=== PATIENT | male | born 1940 | race Caucasian/White ===

== ENCOUNTER 2018-04-25 09:53 | Inpatient (IN) | payer MEDICARE ==
[~2018-04-25] VITALS: Ht 172.7 cm; Wt 74.0 kg
[2018-04-25] VITALS (11 sets, daily range): BP systolic 72–148; BP diastolic 43–82; PULSE 74–92; RESP 16–20; TEMP 98–98.5; O2SAT 95–100
--- NOTE | 2018-04-25 10:20 | PD ---
HPI Chief Complaint: Syncope/Near-Syncope Time Seen by Provider: 10:15 Travel History International Travel<30 days: No Contact w/Intl Traveler<30days: No Traveled to known affect area: No History of Present Illness HPI 78yo M with PMH of afib not on any anticoagulation was brought in by [facility] for evaluation of syncope. Pt was just sitting down eating with and grandson when he passed out for less than a minute. Pt is a poor historian and denies any complaints. Denies any fever, chest pain, sob, n/v, abdominal pain, focal weakness or numbness. Pt does drink daily and was having a bloody nile today. Denies any trauma but does have multiple ecchymoses in bilateral upper extremities and said he bruises easily. PFSH Past Medical History Cardiovascular Problems: Yes (HTN) Diminished Hearing: No Social History Alcohol Use: Yes (10 DRINKS A DAY (WHISKY )) Tobacco Use: No Allergies-Medications (Allergen,Severity, Reaction): Coded Allergies: No Known Allergies (Unverified , 04/25/18) Reported Meds & Prescriptions Reported Meds & Active Scripts Active Reported Furosemide 20 Mg Tab Unknown Dose PO DAILY Cyanocobalamin Inj (Cyanocobalamin) 1,000 Mcg/Ml Inj 1,000 Mcg IM Q30D Xifaxan (Rifaximin) 550 Mg Tab 550 Mg PO Q12HR Lipitor (Atorvastatin Calcium) 40 Mg Tab 40 Mg PO DAILY Levemir Inj (Insulin Detemir) 1,000 unit/ 10 ML Vial 10 Units SQ HS PRN Do not mix with any other Insulin. Folic Acid 1 Mg Tablet 1 Tab PO DAILY Ezetimibe 10 Mg Tab 10 Mg PO DAILY Novolog Flexpen Inj (Insulin Aspart) 300 Unit/3 Ml Pen Unknown Dose SQ TIDAC Novolog Flexpen Inj (Insulin Aspart) 300 Unit/3 Ml Pen 4 Units SQ TIDAC Vitamin B-1 (Thiamine Mononitrate) 100 Mg Tab 100 Mg PO DAILY Fish Oil + D3 (Fish Oil-Cholecalciferol) 1,200-1,000 Mg-Unit Cap 1 Cap PO DAILY Cialis (Tadalafil) 2.5 Mg Tab 2.5 Mg PO DAILY Do not exceed 1 dose/day. Aspirin 81 Mg Chew 81 Mg CHEW DAILY Allopurinol 100 Mg Tab 100 Mg PO DAILY Pantoprazole (Pantoprazole Sodium) 40 Mg Tab 40 Mg PO BID Magox 400 (Magnesium Oxide) 400 Mg Tablet 200 Mg PO BID Review of Systems Except as stated in HPI: all other systems reviewed are Neg Physical Exam Narrative GENERAL: 78yo M in mild distress. SKIN: Focused skin assessment warm/dry. HEAD: Atraumatic. Normocephalic. EYES: Pupils equal and round at 3mm bilaterally. EOMI. ENT: No nasal bleeding or discharge. Mucous membranes pink and moist. NECK: Trachea midline. No JVD. CARDIOVASCULAR: Regular rate and rhythm. No murmur appreciated. RESPIRATORY: No accessory muscle use. Clear to auscultation. Breath sounds equal bilaterally. GASTROINTESTINAL: Abdomen soft, non-tender, nondistended. MUSCULOSKELETAL: No obvious deformities. No clubbing. No cyanosis. +Bilateral lower extremity edema. NEUROLOGICAL: Awake and alert. No obvious cranial nerve deficits. Motor grossly within normal limits. Normal speech. PSYCHIATRIC: Appropriate mood and affect; insight and judgment normal. Data Data Last Documented VS Vital Signs Date Time Temp Pulse Resp B/P (MAP) Pulse Ox O2 Delivery O2 Flow Rate FiO2 04/25/18 14:00 89 20 133/62 (85) 100 Room Air 04/25/18 10:01 98.0 Orders Orders Electrocardiogram (04/25/18 10:15) Basic Metabolic Panel (Bmp) (04/25/18 10:15) Complete Blood Count With Diff (04/25/18 10:15) Magnesium (Mg) (04/25/18 10:15) Troponin I (04/25/18 10:15) Act Partial Throm Time (Ptt) (04/25/18 10:15) Prothrombin Time / Inr (Pt) (04/25/18 10:15) Orthostatic Vital Signs (04/25/18 10:15) Alcohol (Ethanol) (04/25/18 10:15) Sodium Chlor 0.9% 1000 Ml Inj (Ns 1000 M (04/25/18 11:30) Thiamine Inj (Thiamine Inj) (04/25/18 11:30) Potassium Chloride (Kcl) (04/25/18 11:30) Magnesium Sulfate 1 Gm Premix (Magnesium (04/25/18 11:30) Ct Brain W/O Iv Contrast(Rout) (04/25/18 ) Alcohol Withdrawal Asmt-Ciwa ONCE (04/25/18 12:29) Flumazenil Inj (Romazicon Inj) (04/25/18 12:30) Lorazepam (Ativan) (04/25/18 12:30) Lorazepam Inj (Ativan Inj) (04/25/18 12:30) Lorazepam (Ativan) (04/25/18 12:30) Lorazepam Inj (Ativan Inj) (04/25/18 12:30) Lorazepam Inj (Ativan Inj) (04/25/18 12:30) Lorazepam Inj (Ativan Inj) (04/25/18 12:30) 1/2 Ns + Kcl 20 Meq Inj (1/2 Ns + Kcl 20 (04/25/18 15:00) Magnesium Oxide (Mag-Ox) (04/25/18 15:00) Potassium Phosphate (K-Phos) (04/25/18 15:00) Complete Blood Count With Diff (04/26/18 06:00) Allopurinol (Zyloprim) (04/26/18 09:00) Aspirin Chew (Aspirin Chew) (04/26/18 09:00) Atorvastatin (Lipitor) (04/26/18 09:00) Cyanocobalamin Inj (Vitamin B12 Inj) (04/25/18 15:00) Ezetimibe (Zetia) (04/26/18 09:00) Folic Acid (Folate) (04/26/18 09:00) Insulin Detemir Inj (Levemir Inj) (04/25/18 21:00) Pantoprazole (Protonix) (04/25/18 21:00) Rifaximin (Xifaxan) (04/25/18 21:00) Patient Own Medication (04/26/18 09:00) Bedside Glucose JOSIAH.CSUGAR (04/25/18 14:54) Blood Glucose Goal (Criteria) (04/25/18 14:54) Hypoglycemia 70 Mg/Dl Or < (04/25/18 14:54) Notify Dr: Other (04/25/18 14:54) Dextrose 50% In [place] (Vial) Inj (D50w (Vi (04/25/18 15:00) Glucagon Inj (Glucagon Inj) (04/25/18 15:00) Insulin Aspart Supplemtl Scale (Novolog (04/25/18 17:00) Admit Order (Ed Use Only) (04/25/18 14:55) Vitamin B12 (04/25/18 14:56) Folate, Serum (04/25/18 14:56) Iron/Tibc Profile (04/25/18 14:56) Ferritin (04/25/18 14:56) Thiamine (Vit B1) (Vitamin B1) (04/26/18 09:00) Labs Laboratory Tests Test 04/25/18 10:15 White Blood Count 3.4 TH/MM3 Red Blood Count 2.11 MIL/MM3 Hemoglobin 7.6 GM/DL Hematocrit 22.5 % Mean Corpuscular Volume 106.2 FL Mean Corpuscular Hemoglobin 35.8 PG Mean Corpuscular Hemoglobin Concent 33.7 % Red Cell Distribution Width 16.3 % Platelet Count 57 TH/MM3 Mean Platelet Volume 8.3 FL Neutrophils (%) (Auto) 51.7 % Lymphocytes (%) (Auto) 29.2 % Monocytes (%) (Auto) 11.2 % Eosinophils (%) (Auto) 7.0 % Basophils (%) (Auto) 0.9 % Neutrophils # (Auto) 1.8 TH/MM3 Lymphocytes # (Auto) 1.0 TH/MM3 Monocytes # (Auto) 0.4 TH/MM3 Eosinophils # (Auto) 0.2 TH/MM3 Basophils # (Auto) 0.0 TH/MM3 CBC Comment AUTO DIFF Differential Comment AUTO DIFF CONFIRMED Platelet Estimate LOW Platelet Morphology Comment NORMAL Prothrombin Time 13.4 SEC Prothromb Time International Ratio 1.3 RATIO Activated Partial Thromboplast Time 24.0 SEC Blood Urea Nitrogen 35 MG/DL Creatinine 1.84 MG/DL Random Glucose 113 MG/DL Calcium Level 7.7 MG/DL Magnesium Level 1.1 MG/DL Sodium Level 140 MEQ/L Potassium Level 2.9 MEQ/L Chloride Level 100 MEQ/L Carbon Dioxide Level 25.4 MEQ/L Anion Gap 15 MEQ/L Estimat Glomerular Filtration Rate 36 ML/MIN Iron Level 109 MCG/DL Total Iron Binding Capacity 227 MCG/DL Percent Iron Saturation 48.1 % Ferritin 276 NG/ML Troponin I 0.02 NG/ML Vitamin B12 Level 618 PG/ML Folate GREATER THAN 20.0 NG/ML Ethyl Alcohol Level 8 MG/DL MDM Medical Decision Making Medical Screen Exam Complete: Yes Emergency Medical Condition: Yes Interpretation(s) EKG: Afib at 78bpm. PVC. No significant ST elevation or depression. Differential Diagnosis Arrhythmia vs. dehydration vs. electrolyte abnormality vs. seizure vs. TIA Narrative Course 78yo M here with c/o episode of syncope. When pt's came, I was able to get a better history. She said that pt was sitting down and his eyes rolled back and was not responding for 1-2 minutes. Said he was shaking in his upper extremities but he has some baseline tremors. Said this has never happened before. No post ictal period after. Pt is from [place] and his said he has chronic anemia and had dehydration and hypotension 5 weeks ago and had colonoscopy and endoscopy. Labs reviewed, WBC low at 3.4. H/H low at 7.6/ 22.5. Thrombocytopenic at 57,000. Mild hypokalemia, replaced orally. BUN/ creatinine elevated at 35/1.84, unknown baseline. Magnesium is low at 1.1, replaced with magnesium sulfate. Alcohol is only 8, placed pt on CIWA protocol. BP is low and orthostatic is positive. CT brain negative. Pt given NS IVF and blood pressure improved. Unsure if it was seizure vs. syncope and feel that further work up is needed. Discussed with Dr. Bro and accepted to her service. Diagnosis Primary Impression: Syncope Qualified Codes: R55 - Syncope and collapse Additional Impressions: Dehydration Hypomagnesemia Hypokalemia Admitting Information Admitting Physician Requests: Dunia Lima DO Apr 25, 2018 10:20
[2018-04-25 10:36] LABS: AUTOMATED NEUTROPHIL # 1.8 TH/MM3 (1.8-7.7); BASOPHIL % 0.9 % (0.0-2.0); EOSINOPHIL # 0.2 TH/MM3 (0-0.4); HEMATOCRIT 22.5 % (39.0-51.0); HEMOGLOBIN 7.6 GM/DL (13.0-17.0); LYMPH % 29.2 % (9.0-44.0); MEAN CELL VOLUME 106.2 FL (80.0-100.0); MEAN CORPUSCULAR HEMOGLOBIN 35.8 PG (27.0-34.0); MEAN CORPUSCULAR HGB CONC 33.7 % (32.0-36.0); MEAN PLATELET VOLUME 8.3 FL (7.0-11.0); MONO % 11.2 % (0.0-8.0); MONOCYTE # 0.4 TH/MM3 (0-0.9); NEUT % 51.7 % (16.0-70.0); PLATELET COUNT 57 TH/MM3 (150-450); RED BLOOD COUNT 2.11 MIL/MM3 (4.50-5.90); RED CELL DISTRIBUTION WIDTH 16.3 % (11.6-17.2); WHITE BLOOD COUNT 3.4 TH/MM3 (4.0-11.0)
[2018-04-25 10:46] LABS: INTERNATIONAL NORMALIZED RATIO 1.3 RATIO; PROTHROMBIN TIME - PATIENT 13.4 SEC (9.8-11.6)
[2018-04-25] MEDS ORDERED: CIAL2.5T PO (11:01)
[2018-04-25] MEDS ORDERED: ALLO100T PO (11:01)
[2018-04-25] MEDS ORDERED: FISHCAP4 PO (11:01)
[2018-04-25] MEDS ORDERED: ASPI-516 CHEW (11:01)
[2018-04-25] MEDS ORDERED: PANT40TA3 PO (11:01)
[2018-04-25] MEDS ORDERED: MAGO400T2 PO (11:01)
[2018-04-25] MEDS ORDERED: THIA100T16 PO (11:01)
[2018-04-25] MEDS ORDERED: NOVOINJ3 SQ ×2 (11:04→11:12)
[2018-04-25] MEDS ORDERED: XIFA550T4 PO (11:12)
[2018-04-25] MEDS ORDERED: FOLI1TAB6 PO (11:12)
[2018-04-25] MEDS ORDERED: CYAN1000P IM (11:12)
[2018-04-25] MEDS ORDERED: EZET1TAB8 PO (11:12)
[2018-04-25] MEDS ORDERED: LEVEMIR SQ (11:12)
[2018-04-25] MEDS ORDERED: LIPI40TA PO (11:12)
[2018-04-25 11:14] LABS: BICARBONATE 25.4 MEQ/L (21.0-32.0); CALCIUM 7.7 MG/DL (8.5-10.1); CREATININE 1.84 MG/DL (0.60-1.30); MAGNESIUM 1.1 MG/DL (1.5-2.5); TROPONIN I 0.02 NG/ML (0.02-0.05)
[2018-04-25] MEDS ORDERED: FURO20TA PO (11:14)
[2018-04-25] MEDS ORDERED: THIAMINE INJ 100 MG in SODIUM CHLORIDE 0.9% INJ 100 ML IV ONE (11:30)
[2018-04-25] MEDS ORDERED: SODIUM CHLOR 0.9% 1000 ML INJ 1,000 ML IV ONE (11:30)
[2018-04-25] MEDS ORDERED: POTASSIUM CHLORIDE 20 MEQ CONTROLLED RELEASE TAB PO ONE (11:30)
[2018-04-25] MEDS ORDERED: MAGNESIUM SULFATE 1 GM PREMIX 100 ML IV ONE (11:30)
[2018-04-25] MEDS ORDERED: LORazepam 2 MG/ML VIAL IV PUSH PRN ×4 (12:30)
[2018-04-25] MEDS ORDERED: FLUMAZENIL 0.5 MG/5 ML VIAL IV PUSH PRN (12:30)
[2018-04-25] MEDS ORDERED: LORazepam 2 MG TAB PO PRN (12:30)
[2018-04-25] MEDS ORDERED: LORazepam 1 MG TAB PO PRN (12:30)
--- NOTE | 2018-04-25 14:20 | RADRPT ---
EXAM DATE: 04/25/2018 2:17 PM EDT AGE/SEX: 78 years / Male INDICATIONS: Altered mental status. CLINICAL DATA: This is the patient's initial encounter. Patient reports that signs and symptoms have been present for 1 day and indicates a pain score of 0/10. MEDICAL/SURGICAL HISTORY: Hypertension. Cardiovascular disease. Diabetes. anemia None. RADIATION DOSE: 56.35 CTDI (mGy) COMPARISON: No prior exams available for comparison. TECHNIQUE: CT of the head without contrast. Using automated exposure control and adjustment of the mA and/or kV according to patient size, radiation dose was kept as low as reasonably achievable to ob tain optimal diagnostic quality images. FINDINGS: Cerebrum: The ventricles are normal for age. No evidence of midline shift, mass lesion, hemorrhage or acute infarction. No extraaxial fluid collections are seen. Posterior Fossa: The cerebellum and brainstem are intact. The 4th ventricle is midline. The cerebe llopontine angle is unremarkable. Extracranial: The visualized portion of the orbits is intact. Skull: The calvaria is intact. No evidence of skull fracture. CONCLUSION: 1. Negative for acute process Electronically signed by: Bj King MD 04/25/2018 2:19 PM EDT
[2018-04-25] MEDS ORDERED: GLUCAGON 1 MG/ML VIAL OTHER PRN (15:00)
[2018-04-25] MEDS ORDERED: 1/2 NS + KCL 20 MEQ INJ 1,000 ML IV SCH (15:00)
[2018-04-25] MEDS ORDERED: POTASSIUM PHOSPHATE MONOBASIC 500 MG TAB PO ONE (15:00)
[2018-04-25] MEDS ORDERED: DEXTROSE 50% IN WATER 50 ML VIAL(D50) IV PUSH PRN (15:00)
[2018-04-25] MEDS ORDERED: CYANOCOBALAMIN 1000 MCG/ML VIAL IM SCH (15:00)
[2018-04-25] MEDS ORDERED: SODIUM CHLORIDE 0.9% FLUSH 10 ML FLUSH IV FLUSH PRN (15:30)
[2018-04-25] MEDS ORDERED: ACETAMINOPHEN 325 MG TAB PO PRN (15:30)
[2018-04-25] MEDS ORDERED: MAGNESIUM HYDROXIDE SUSP 30 ML CUP PO PRN (15:30)
[2018-04-25] MEDS ORDERED: BISACODYL 10 MG SUPP RECTAL PRN (15:30)
[2018-04-25] MEDS ORDERED: SENNOSIDES 8.6 MG TAB PO PRN (15:30)
[2018-04-25] MEDS ORDERED: NALOXONE HCL 0.4 MG/ML AMP IV PUSH PRN (15:30)
[2018-04-25] MEDS ORDERED: ONDANSETRON HCL 4 MG/2 ML VIAL IVP PRN (15:30)
[2018-04-25] MEDS ORDERED: LACTULOSE SYRUP 20 GM/30 ML CUP PO PRN (15:30)
--- NOTE | 2018-04-25 15:37 | HHI.HP ---
[facility] Unknown Admission Diagnosis Syncope vs. seizure, hypokalemia, hypomagnesemia, dehydration Diagnoses: Chief Complaint: syncope Travel History International Travel<30 Days: No Contact w/Intl Traveler <30 Da: No Traveled to Known Affected Are: No History of Present Illness 78-year-old male visiting from [place], with history of chronic iron deficient anemia, alcohol abuse, hypertension, insulin-dependent diabetes, GERD, hyperlipidemia, presents with sudden lightheadedness and loss of consciousness. The patient is a poor historian and has little recollection of events, therefore history supplemented by the . Patient states he was in his normal state of health this morning, went downstairs to get breakfast, sat down at the breakfast table when he started to develop acute lightheadedness. The patient does not remember much after this except for return of consciousness while sitting at the table, and having the sudden urge to have a bowel movement. No incontinence reported. Patient's states that while the patient was sitting at the table, his eyes rolled in the back of his head, shaking of upper extremities, and he was unresponsive for approximately 1 minute. She shook the patient and he finally regained consciousness but was not making sense for a few minutes with slowed speech. 911 was called. The patient then ambulated to the restroom, and then [facility] arrived. The patient denies ever having any chest pain, palpitations, shortness of breath, unilateral numbness/weakness. The patient admits to drinking approximately 10 one ounce beverages of [employer] on the [employer] daily. He denies any prior history of alcohol withdrawal or seizures. He reports a chronic history of iron deficiency anemia. The patient had a similar episode of brief loss of consciousness 6 weeks ago. He had evaluation including EGD/colonoscopy, echocardiogram, capsule endoscopy which were all unremarkable. He denies any melena or hematochezia. Patient states he has required iron infusions twice over the past year for his anemia but has never required blood transfusion and the lowest hemoglobin has been around 8.5. He has a contracts director back in [place] and has an appointment next week. Patient was also told that he had a brief episode of atrial fibrillation while hospitalized, however converted to normal rhythm, and was not started on anticoagulation due to chronic anemia, thrombocytopenia, and alcohol abuse. The patient currently feels mostly back to normal, AAO x4, but does admit to some generalized weakness and fatigue. He has no other medical complaints at this time including no cough, congestion, abdominal pain, nausea/vomiting, diarrhea, or urinary complaints. Review of Systems Except as stated in HPI: all other systems reviewed are Neg Past Family Social History Past Medical History chronic iron deficient anemia alcohol abuse hypertension insulin-dependent diabetes GERD hyperlipidemia Past Surgical History Appendectomy age 14 Bilateral carpal tunnel release EGD/colonoscopy Reported Medications Furosemide 20 Mg Tab Unknown Dose PO DAILY Cyanocobalamin Inj (Cyanocobalamin) 1,000 Mcg/Ml Inj 1,000 Mcg IM Q30D Xifaxan (Rifaximin) 550 Mg Tab 550 Mg PO Q12HR Lipitor (Atorvastatin Calcium) 40 Mg Tab 40 Mg PO DAILY Levemir Inj (Insulin Detemir) 1,000 unit/ 10 ML Vial 10 Units SQ HS PRN Do not mix with any other Insulin. Folic Acid 1 Mg Tablet 1 Tab PO DAILY Ezetimibe 10 Mg Tab 10 Mg PO DAILY Novolog Flexpen Inj (Insulin Aspart) 300 Unit/3 Ml Pen Unknown Dose SQ TIDAC Novolog Flexpen Inj (Insulin Aspart) 300 Unit/3 Ml Pen 4 Units SQ TIDAC Vitamin B-1 (Thiamine Mononitrate) 100 Mg Tab 100 Mg PO DAILY Fish Oil + D3 (Fish Oil-Cholecalciferol) 1,200-1,000 Mg-Unit Cap 1 Cap PO DAILY Cialis (Tadalafil) 2.5 Mg Tab 2.5 Mg PO DAILY Do not exceed 1 dose/day. Aspirin 81 Mg Chew 81 Mg CHEW DAILY Allopurinol 100 Mg Tab 100 Mg PO DAILY Pantoprazole (Pantoprazole Sodium) 40 Mg Tab 40 Mg PO BID Magox 400 (Magnesium Oxide) 400 Mg Tablet 200 Mg PO BID Allergies: Coded Allergies: No Known Allergies (Unverified , 04/25/18) Active Ordered Medications Current Medications Medications (Trade) Dose Ordered Sig/Sukh Route Start Time Stop Time Status Last Admin (Romazicon Inj) 0.2 mg Q1M PRN IV PUSH 04/25/18 12:30 (Ativan) 1 mg Q4H PRN PO 04/25/18 12:30 (Ativan Inj) 1 mg Q4H PRN IV PUSH 04/25/18 12:30 04/25/18 12:50 (Ativan) 2 mg Q2H PRN PO 04/25/18 12:30 (Ativan Inj) 2 mg Q2H PRN IV PUSH 04/25/18 12:30 (Ativan Inj) 2 mg Q1H PRN IV PUSH 04/25/18 12:30 (Ativan Inj) 2 mg Q15M PRN IV PUSH 04/25/18 12:30 Potassium Chloride/Sodium Chloride 1,000 ml @ 84 mls/hr [id number] IV 04/25/18 15:00 (Mag-Ox) 400 mg DAILY PO 04/25/18 15:00 04/29/18 14:59 (Zyloprim) 100 mg DAILY PO 04/26/18 09:00 (Aspirin Chew) 81 mg DAILY CHEW 04/26/18 09:00 (Lipitor) 40 mg DAILY PO 04/26/18 09:00 (Vitamin B12 Inj) 1,000 mcg Q30D IM 04/25/18 15:00 (Zetia) 10 mg DAILY PO 04/26/18 09:00 (Folate) 1 mg DAILY PO 04/26/18 09:00 (Protonix) 40 mg BID PO 04/25/18 21:00 (Xifaxan) 550 mg Q12HR PO 04/25/18 21:00 Patient Own Medication PT OWN MED: [place]... DAILY PO 04/26/18 09:00 Future Hold (Vitamin B1) 100 mg DAILY PO 04/26/18 09:00 (D50w (Vial) Inj) 50 ml UNSCH PRN IV PUSH 04/25/18 15:00 (Glucagon Inj) 1 mg UNSCH PRN OTHER 04/25/18 15:00 (NovoLOG SUPPLEMENTAL SCALE) 1 ACHS SLIDING SCALE SQ 04/25/18 17:00 Family History Father with CHF Mother with rheumatoid arthritis Paternal grandmother with diabetes Social History Prior tobacco use, quit age 32 Daily alcohol use, 10 one ounce [place] on the rocks daily Denies any illicit drug use Physical Exam Vital Signs Vital Signs Date Time Temp Pulse Resp B/P (MAP) Pulse Ox O2 Delivery O2 Flow Rate FiO2 04/25/18 12:23 86 18 128/56 (80) 99 Room Air 04/25/18 10:34 81 72/43 (53) 04/25/18 10:30 76 16 80/43 (55) 04/25/18 10:01 98.0 87 16 103/53 (70) 97 04/25/18 10:01 Room Air Physical Exam GENERAL: Well-nourished, well-developed elderly male patient in [facility]. SKIN: Warm and dry. No rash. HEAD: Normocephalic. Atraumatic. EYES: Pupils equal and round. No scleral icterus. No injection or drainage. + Subconjunctival pallor. ENT: No nasal bleeding or discharge. Mucous membranes pink and moist. NECK: Supple. Trachea midline. CARDIOVASCULAR: Irregular rate and rhythm. No murmur appreciated. RESPIRATORY: No accessory muscle use. Clear to auscultation. Breath sounds equal bilaterally. GASTROINTESTINAL: Abdomen soft, non-tender, nondistended. Normoactive bowel sounds x4. MUSCULOSKELETAL: No obvious deformities. Extremities without clubbing, cyanosis , or edema. NEUROLOGICAL: Awake and alert. No obvious cranial nerve deficits. Motor grossly within normal limits. 5/5 muscle strength in bilateral upper and lower extremities. Normal speech. No facial droop, lid lag, or tongue deviation. PSYCHIATRIC: Appropriate mood and affect; insight and judgment normal. Laboratory Laboratory Tests Test 04/25/18 10:15 White Blood Count 3.4 Red Blood Count 2.11 Hemoglobin 7.6 Hematocrit 22.5 Mean Corpuscular Volume 106.2 Mean Corpuscular Hemoglobin 35.8 Mean Corpuscular Hemoglobin Concent 33.7 Red Cell Distribution Width 16.3 Platelet Count 57 Mean Platelet Volume 8.3 Neutrophils (%) (Auto) 51.7 Lymphocytes (%) (Auto) 29.2 Monocytes (%) (Auto) 11.2 Eosinophils (%) (Auto) 7.0 Basophils (%) (Auto) 0.9 Neutrophils # (Auto) 1.8 Lymphocytes # (Auto) 1.0 Monocytes # (Auto) 0.4 Eosinophils # (Auto) 0.2 Basophils # (Auto) 0.0 CBC Comment AUTO DIFF Differential Comment AUTO DIFF CONFIRMED Platelet Estimate LOW Platelet Morphology Comment NORMAL Prothrombin Time 13.4 Prothromb Time International Ratio 1.3 Activated Partial Thromboplast Time 24.0 Blood Urea Nitrogen 35 Creatinine 1.84 Random Glucose 113 Calcium Level 7.7 Magnesium Level 1.1 Sodium Level 140 Potassium Level 2.9 Chloride Level 100 Carbon Dioxide Level 25.4 Anion Gap 15 Estimat Glomerular Filtration Rate 36 Troponin I 0.02 Ethyl Alcohol Level 8 Result Diagram: 04/25/18 1015 04/25/18 1015 Imaging Last Impressions Head CT 04/25/18 0000 Signed Impressions: CONCLUSION: 1. Negative for acute process Caprini VTE Risk Assessment Caprini VTE Risk Assessment: Mod/High Risk (score >= 2) VTE Pharm Contraindication: High risk for bleeding Caprini Risk Assessment Model Point Value = 1 Point Value = 2 Point Value = 3 Point Value = 5 Age 41-60 Minor surgery BMI > 25 kg/m2 Swollen legs Varicose veins or History of unexplained or recurrent spontaneous Oral contraceptives or hormone replacement Sepsis (< 1 month) Serious lung disease, including pneumonia (< 1 month) Abnormal pulmonary function Acute myocardial infarction Congestive heart failure (< 1 month) History of inflammatory bowel disease Medical patient at bed rest Age 61-74 Arthroscopic surgery Major open surgery (> 45 min) Laparoscopic surgery (> 45 min) Malignancy Confined to bed (> 72 hours) Immobilizing plaster cast Central venous access Age >= 75 History of VTE Family history of VTE Factor V Leiden Prothrombin [id number] Lupus anticoagulant Anticardiolipin antibodies Elevated serum homocysteine Heparin-induced thrombocytopenia Other congenital or acquired thrombophilia Stroke (< 1 month) Elective arthroplasty Hip, pelvis, or leg fracture Acute spinal cord injury (< 1 month) Prophylaxis Regimen Total Risk Factor Score Risk Level Prophylaxis Regimen 0-1 Low Early ambulation 2 Moderate Order ONE of the following: *Sequential Compression Device (SCD) *Heparin 5000 units SQ BID 3-4 Higher Order ONE of the following medications: *Heparin 5000 units SQ TID *Enoxaparin/Lovenox 40 mg SQ daily (WT < 150 kg, CrCl > 30 mL/min) *Enoxaparin/Lovenox 30 mg SQ daily (WT < 150 kg, CrCl > 10-29 mL/min) *Enoxaparin/Lovenox 30 mg SQ BID (WT < 150 kg, CrCl > 30 mL/min) AND/OR *Sequential Compression Device (SCD) 5 or more Highest Order ONE of the following medications: *Heparin 5000 units SQ TID (Preferred with Epidurals) *Enoxaparin/Lovenox 40 mg SQ daily (WT < 150 kg, CrCl > 30 mL/min) *Enoxaparin/Lovenox 30 mg SQ daily (WT < 150 kg, CrCl > 10-29 mL/min) *Enoxaparin/Lovenox 30 mg SQ BID (WT < 150 kg, CrCl > 30 mL/min) AND *Sequential Compression Device (SCD) Assessment and Plan Assessment and Plan 78-year-old male visiting from [place], with history of chronic iron deficient anemia, alcohol abuse, hypertension, insulin-dependent diabetes, GERD, hyperlipidemia, presents with sudden lightheadedness and loss of consciousness. Syncope/LOC: Rule out TIA/CVA, seizure. Suspect multifactorial secondary to afib , anemia, hypotension, in combination with alcohol abuse/withdrawal. -Head CT reviewed and unremarkable -Check brain MRI/MRA -Patient had recent echo 6weeks ago, will try to obtain records from [place] -Neuro check, seizure precautions -Monitor on telemetry -Rule out ACS with serial cardiac enzymes and EKGs -Check EEG -Give IVF hydration -Check orthostatic vitals signs -Consult PT/OT -continue patient's aspirin, statin Symptomatic anemia: Hgb 7.6 upon arrival. Patient's reports his baseline has been around 8.5 to 9.5. -given symptoms as above, will transfuse 1u pRBC -check iron studies, b12, folate -continue on iron replacement -patient had extensive recent work up with EGD/colonoscopy and capsule endoscopy which were reportedly unremarkable -patient also has upcoming appt with contracts director 2 days after he returns to [place], encouraged follow up -monitor CBC New onset atrial fibrillation: patient with afib, borderline RVR HR in 90-100s on telemetry in ER. Patient reports brief episode of afib during previous hospitalization. Suspect exacerbated by alcohol abuse and electrolyte abnormalities. -holding any rate controlling medication for now given hypotension and acceptable HR -monitor on telemetry -Continue patient's daily aspirin 81mg -Patient high risk for bleeding on anticoagulation given alcohol abuse and pancytopenia; patient and declining any further anticoagulation at this time Hypotension, with Hx of Hypertension: BP as low as 72/43 in the ER. Possibly secondary to diuretic and dehydration. -holding patient's lasix -give IVF hydration -checking orthostatics -monitor BP Alcohol abuse/withdrawal: patient drinks 10 one ounce glasses of [place] on the rocks daily. Denies any history of withdrawal or seizure. -Strongly counseled on cessation -thiamine/folate/MV -WA protocol -seizure precautions Severe electrolyte deficiencies with hypokalemia/hypomagnesemia: K 2.9, Mag 1.1. Suspect secondary to diuretic, poor oral intake, and alcohol abuse. -Given K and Mag replacement -monitor BMP/mag/phos -continue IVF with KCl WAYNE: Cr 1.84. Suspect secondary to dehydration. No previous labs to compare. -give IVF hydration -hold patient's lasix -avoid nephrotoxins -repeat BMP in am Diabetes Mellitus: chronic -holding patient's levemir 10u for now with decreased oral intake and possible episodes of hypoglycemia -monitor Accu-checks and cover with SSI for now GERD: chronic -continue patient's Protonix Hyperlipidemia: chronic -continue patient's home medications Thrombocytopenia: platelets 57K. Patient reports chronic thrombocytopenia and follows with contracts director -avoid antiplatelets -outpatient f/up -monitor CBC DVT Prophylaxis: teds/SCDs; avoid chemoprophylaxis with thrombocytopenia Code Status DNR, Discussed with patient and . Discussed Condition With Patient, Patient's , Dr. Bro Physician Certification 2 Midnight Certification Type: Admission for Inpatient Services Order for Inpatient Services The services are ordered in accordance with Medicare regulations or non- Medicare payer requirements, as applicable. In the case of services not specified as inpatient-only, they are appropriately provided as inpatient services in accordance with the 2-midnight benchmark. Estimated LOS (days): 3 days is the estimated time the patient will need to remain in the hospital, assuming treatment plan goals are met and no additional complications. Post-Hospital Plan: Not yet determined Amna Rivera PA-C Apr 25, 2018 15:37
[2018-04-25] MEDS ORDERED: SODIUM CHLOR 0.9% 250 ML INJ 250 ML IV ONE (15:45)
[2018-04-25 17:08] LABS: % SATURATION IRON PROFILE 48.1 % (20-50); IRON (FE) 109 MCG/DL (65-175); TOTAL IRON BINDING CAPACITY 227 MCG/DL (250-450)
[2018-04-25 17:33] LABS: FERRITIN 276 NG/ML (26-388)
[2018-04-25 17:34] LABS: FOLATE GREATER THAN 20.0 NG/ML (3.1-17.5)
[2018-04-25] MEDS: MAGNESIUM OXIDE 400 MG TAB PO SCH (17:44)
[2018-04-25] MEDS: INSULIN ASPART SUPPLEMENTAL SCALE SQ SCH ×2 (17:45→22:23)
--- NOTE | 2018-04-25 19:58 | EKG ---
Date Performed: 04/25/2018 Time Performed: 10:28:11 PTAGE: 78 years EKG: ATRIAL FIBRILLATION WITH ABERRANT CONDUCTION OR VENTRICULAR PREMATURE COMPLEXES ABNORMAL [facility] ECG NO PREVIOUS TRACING DOCTOR: Martina Johnston Interpretating Date/Time 04/25/2018 19:57:56
[2018-04-25] MEDS ORDERED: INSULIN DETEMIR 100 UNITS/ML VIAL SQ SCH (21:00)
[2018-04-25] MEDS: PANTOPRAZOLE SOD 40 MG DELAYED RELEASE TAB PO SCH (22:22)
[2018-04-25] MEDS: DOCUSATE SODIUM 50 MG/SENNA 8.6 MG TAB PO SCH (22:23)
[2018-04-25] MEDS: SODIUM CHLORIDE 0.9% FLUSH 10 ML FLUSH IV FLUSH SCH (22:24)
[2018-04-25] MEDS: RIFAXIMIN 550 MG TAB PO SCH (22:34)
[2018-04-26] VITALS (9 sets, daily range): BP systolic 106–161; BP diastolic 62–79; PULSE 66–108; RESP 16–22; TEMP 97.6–98.8; O2SAT 96–99
[2018-04-26 07:04] LABS: BASOPHIL % 0.9 % (0.0-2.0); EOSINOPHIL # 0.3 TH/MM3 (0-0.4); EOSINOPHIL % 6.7 % (0.0-4.0); HEMATOCRIT 34.9 % (39.0-51.0); HEMOGLOBIN 11.8 GM/DL (13.0-17.0); LYMPH % 24.2 % (9.0-44.0); LYMPHOCYTE # 1.2 TH/MM3 (1.0-4.8); MEAN CELL VOLUME 101.2 FL (80.0-100.0); MEAN CORPUSCULAR HEMOGLOBIN 34.1 PG (27.0-34.0); MEAN CORPUSCULAR HGB CONC 33.7 % (32.0-36.0); MEAN PLATELET VOLUME 8.3 FL (7.0-11.0); MONO % 8.1 % (0.0-8.0); MONOCYTE # 0.4 TH/MM3 (0-0.9); NEUT % 60.1 % (16.0-70.0); PLATELET COUNT 60 TH/MM3 (150-450); RED BLOOD COUNT 3.45 MIL/MM3 (4.50-5.90); RED CELL DISTRIBUTION WIDTH 19.4 % (11.6-17.2)
[2018-04-26 07:29] LABS: ALBUMIN 2.8 GM/DL (3.4-5.0); AST (GOT) 41 U/L (15-37); BICARBONATE 25.5 MEQ/L (21.0-32.0); BLOOD UREA NITROGEN 29 MG/DL (7-18); CALCIUM 8.1 MG/DL (8.5-10.1); CHLORIDE 102 MEQ/L (98-107); CREATININE 1.55 MG/DL (0.60-1.30); GLOMERULAR FILTRATION RATE 44 ML/MIN (>89); GLUCOSE,RANDOM 181 MG/DL (74-106); MAGNESIUM 1.4 MG/DL (1.5-2.5); SODIUM (NA) 140 MEQ/L (136-145)
[2018-04-26 07:35] LABS: ALKALINE PHOSPHATASE 167 U/L (45-117); ALT (GPT) 16 U/L (12-78); PHOSPHORUS 2.8 MG/DL (2.5-4.9); TOTAL BILIRUBIN ADULT 1.2 MG/DL (0.2-1.0); TOTAL PROTEIN 6.1 GM/DL (6.4-8.2); TROPONIN I LESS THAN 0.02 NG/ML (0.02-0.05)
[2018-04-26] MEDS: INSULIN ASPART SUPPLEMENTAL SCALE SQ SCH ×3 (08:00→13:01)
[2018-04-26] MEDS: DOCUSATE SODIUM 50 MG/SENNA 8.6 MG TAB PO SCH (09:00)
[2018-04-26] MEDS ORDERED: ASPIRIN 81 MG CHEW TAB CHEW SCH (09:00)
[2018-04-26] MEDS ORDERED: ALLOPURINOL 100 MG TAB PO SCH (09:00)
[2018-04-26] MEDS ORDERED: TADALAFIL PO SCH (09:00)
[2018-04-26] MEDS ORDERED: EZETIMIBE 10 MG TAB PO SCH (09:00)
[2018-04-26] MEDS ORDERED: MULTIVITAMINS/MINERALS THERAPEUTIC TAB PO SCH (09:00)
[2018-04-26] MEDS ORDERED: THIAMINE HCL 100 MG TAB PO SCH (09:00)
[2018-04-26] MEDS ORDERED: ATORVASTATIN 40 MG TAB PO SCH (09:00)
[2018-04-26] MEDS ORDERED: FOLIC ACID 1 MG TAB PO SCH (09:00)
[2018-04-26] MEDS: RIFAXIMIN 550 MG TAB PO SCH (09:03)
[2018-04-26] MEDS: SODIUM CHLORIDE 0.9% FLUSH 10 ML FLUSH IV FLUSH SCH (09:05)
[2018-04-26] MEDS: MAGNESIUM OXIDE 400 MG TAB PO SCH (09:05)
[2018-04-26] MEDS: PANTOPRAZOLE SOD 40 MG DELAYED RELEASE TAB PO SCH (09:05)
--- NOTE | 2018-04-26 10:54 | RADRPT ---
EXAM DATE: 04/26/2018 10:30 AM EDT AGE/SEX: 78 years / Male INDICATIONS: CVA. CLINICAL DATA: This is the patient's initial encounter. Patient reports that signs and symptoms have been present for 1 day and indicates a pain score of 0/10. MEDICAL/SURGICAL HISTORY: Diabetes mellitus type II. Atrial fibrillation. Appendectomy. Bilate ral carpal tunnel. COMPARISON: No prior exams available for comparison. TECHNIQUE: 3D [id number] MRA was performed. Source images, multiplanar STS MIP, and 3D volum e MIP reconstructions were reviewed. FINDINGS: There is excellent visualization of the major intracranial arteries out to the second-order branch ve ssels. There is no evidence for aneurysm, vessel truncation or stenosis, and no evidence for vascula r malformation. Incidental origin of the left posterior cerebral artery. CONCLUSION: No acute hop[place] of Michele vascular findings. Electronically signed by: Lei Wilson MD 04/26/2018 10:53 AM EDT
--- NOTE | 2018-04-26 10:57 | RADRPT ---
EXAM DATE: 04/26/2018 10:46 AM EDT AGE/SEX: 78 years / Male INDICATIONS: CVA. CLINICAL DATA: This is the patient's initial encounter. Patient reports that signs and symptoms have been present for 1 day and indicates a pain score of 0/10. MEDICAL/SURGICAL HISTORY: Diabetes mellitus type II. Atrial fibrillation. Appendectomy. Bilate ral cataracts. COMPARISON: [facility] [place], CT BRAIN W/O CONTRAST, 04/25/2018. . TECHNIQUE: Multiplanar, multisequence examination of the brain was performed without contrast. FINDINGS: Cerebrum: The ventricles are normal for age. No evidence of midline shift, mass lesion, hemorrhage or acute infarction. No extraaxial fluid collections are seen. The pituitary gland and suprasellar cistern are normal in configuration. White Matter: No significant signal abnormalities are seen in the white matter. Posterior Fossa: The cerebellum and brainstem are intact. The 4th ventricle is midline. The cerebel lopontine angle is unremarkable. The cerebellar tonsils are normal in position. Diffusion Imaging: No focal areas of restricted diffusion are seen. No evidence of acute infarction . Extracranial: The visualized portions of the orbits and paranasal sinuses are unremarkable. CONCLUSION: Negative MR Brain non contrast. Electronically signed by: Lei Wilson MD 04/26/2018 10:56 AM EDT
--- NOTE | 2018-04-26 18:03 | MG ---
cc: Pramod Lei MD, David J MD EEG NUMBER [id number] Passed out. Alcohol use. Lipitor. INTERPRETATION: The recording shows a lot of muscle artifact to start the recording. A 10-11 Hz, 40 microvolt diffuse rhythm is seen. The recording overall is synchronous and symmetric. The right temporal leads there is so much artifact it is difficult to interpret. I see no hemisphere asymmetry. No epileptiform or seizure activity is noted. The right temporal leads never clear well. Photic stimulation is performed without significant posterior driving. IMPRESSION: What appears to be a normal electroencephalogram. There was so much muscle artifact on the right temporal leads I could not tell much there, but otherwise electroencephalogram was normal. Clinical correlation is needed. MD PORTILLO AlvarezM/ , 05:49 PM , 06:01 PM
--- NOTE | 2018-04-27 10:03 | HHI.DS ---
Discharge Summary Admission Date Apr 25, 2018 at 14:56 Discharge Date: Apr 26, 2018 Admitting Diagnosis Syncope vs. seizure, hypokalemia, hypomagnesemia, dehydration (1) New onset a-fib ICD Code: I48.91 - Unspecified atrial fibrillation (2) WAYNE (acute kidney injury) ICD Code: N17.9 - Acute kidney failure, unspecified (3) Dehydration ICD Code: E86.0 - Dehydration (4) Syncope ICD Code: R55 - Syncope and collapse Procedures None Brief History - From Admission 78-year-old male visiting from [place], with history of chronic iron deficient anemia, alcohol abuse, hypertension, insulin-dependent diabetes, GERD, hyperlipidemia, presents with sudden lightheadedness and loss of consciousness. The patient is a poor historian and has little recollection of events, therefore history supplemented by the . Patient states he was in his normal state of health this morning, went downstairs to get breakfast, sat down at the breakfast table when he started to develop acute lightheadedness. The patient does not remember much after this except for return of consciousness while sitting at the table, and having the sudden urge to have a bowel movement. No incontinence reported. Patient's states that while the patient was sitting at the table, his eyes rolled in the back of his head, shaking of upper extremities, and he was unresponsive for approximately 1 minute. She shook the patient and he finally regained consciousness but was not making sense for a few minutes with slowed speech. 911 was called. The patient then ambulated to the restroom, and then EVAC arrived. The patient denies ever having any chest pain, palpitations, shortness of breath, unilateral numbness/weakness. The patient admits to drinking approximately 10 one ounce beverages of Bob Mcfarlane on the rocks daily. He denies any prior history of alcohol withdrawal or seizures. He reports a chronic history of iron deficiency anemia. The patient had a similar episode of brief loss of consciousness 6 weeks ago. He had evaluation including EGD/colonoscopy, echocardiogram, capsule endoscopy which were all unremarkable. He denies any melena or hematochezia. Patient states he has required iron infusions twice over the past year for his anemia but has never required blood transfusion and the lowest hemoglobin has been around 8.5. He has a psychiatry resident back in [place] and has an appointment next week. Patient was also told that he had a brief episode of atrial fibrillation while hospitalized, however converted to normal rhythm, and was not started on anticoagulation due to chronic anemia, thrombocytopenia, and alcohol abuse. The patient currently feels mostly back to normal, AAO x4, but does admit to some generalized weakness and fatigue. He has no other medical complaints at this time including no cough, congestion, abdominal pain, nausea/vomiting, diarrhea, or urinary complaints. CBC/BMP: 04/26/18 0528 04/26/18 0528 Significant Findings Laboratory Tests Test 04/25/18 10:15 04/26/18 05:28 White Blood Count 3.4 TH/MM3 (4.0-11.0) Red Blood Count 2.11 MIL/MM3 (4.50-5.90) 3.45 MIL/MM3 (4.50-5.90) Hemoglobin 7.6 GM/DL (13.0-17.0) 11.8 GM/DL (13.0-17.0) Hematocrit 22.5 % (39.0-51.0) 34.9 % (39.0-51.0) Mean Corpuscular Volume 106.2 FL (80.0-100.0) 101.2 FL (80.0-100.0) Mean Corpuscular Hemoglobin 35.8 PG (27.0-34.0) 34.1 PG (27.0-34.0) Platelet Count 57 TH/MM3 (150-450) 60 TH/MM3 (150-450) Monocytes (%) (Auto) 11.2 % (0.0-8.0) 8.1 % (0.0-8.0) Eosinophils (%) (Auto) 7.0 % (0.0-4.0) 6.7 % (0.0-4.0) Platelet Estimate LOW (NORMAL) LOW (NORMAL) Prothrombin Time 13.4 SEC (9.8-11.6) Activated Partial Thromboplast Time 24.0 SEC (24.3-30.1) Blood Urea Nitrogen 35 MG/DL (7-18) 29 MG/DL (7-18) Creatinine 1.84 MG/DL (0.60-1.30) 1.55 MG/DL (0.60-1.30) Random Glucose 113 MG/DL (74-106) 181 MG/DL (74-106) Calcium Level 7.7 MG/DL (8.5-10.1) 8.1 MG/DL (8.5-10.1) Magnesium Level 1.1 MG/DL (1.5-2.5) 1.4 MG/DL (1.5-2.5) Potassium Level 2.9 MEQ/L (3.5-5.1) Estimat Glomerular Filtration Rate 36 ML/MIN (>89) 44 ML/MIN (>89) Total Iron Binding Capacity 227 MCG/DL (250-450) Folate GREATER THAN 20.0 NG/ML Ethyl Alcohol Level 8 MG/DL (0-5) Red Cell Distribution Width 19.4 % (11.6-17.2) Total Protein 6.1 GM/DL (6.4-8.2) Albumin 2.8 GM/DL (3.4-5.0) Alkaline Phosphatase 167 U/L (45-117) Aspartate Amino Transf (AST/SGOT) 41 U/L (15-37) Total Bilirubin 1.2 MG/DL (0.2-1.0) Troponin I LESS THAN 0.02 NG/ML Hospital Course Patient admitted with, patient has a symptomatic anemia with hemoglobin of 7.6 syncope losing of consciousness workup started to rule out TIA versus CVA seizure also started workup for that, seems to have a new onset atrial fibrillation with RVR close to 100, hypertension, alcohol intoxication with a level of the normal was shown as well as dehydration, WAYNE he has a history of diabetes mellitus, patient started on IV fluid, however he refused to stay to finish the workup and he decided on leaving AMA I spent time discussing with the patient, his family was at the bedside I tried to explain to him the importance of monitoring his hemoglobin and making sure he is stabilizing prior to getting discharge however he definitely declined, his family showed understanding of my point of view but the patient was very adamant to leave Pt Condition on Discharge: Guarded Discharge Disposition: Discharge Home (Patient left AMA he was not discharged officially) Discharge Time: > 30 minutes Maria Fernanda Spear MD Apr 27, 2018 10:03
== END 2018-04-26 16:27 | disposition left against medical advice (07) | DRG 309 ==
LOC: NEPC 09:53 → NEDA 14:56 → N03B 20:22
PROVIDERS: ADMIT Hospitalist; ATTEND Hospitalist
PROC: 30233N1 Transfusion of Nonautologous Red Blood Cells into Peripheral Vein, Percutaneous Approach (ICD-10-PCS; principal; 2018-04-25)
DX: I48.91 Unspecified atrial fibrillation (principal); N17.9 Acute kidney failure, unspecified; E86.0 Dehydration; D69.6 Thrombocytopenia, unspecified; I95.9 Hypotension, unspecified; D64.9 Anemia, unspecified; E11.9 Type 2 diabetes mellitus without complications; E83.42 Hypomagnesemia; R55 Syncope and collapse; I10 Essential (primary) hypertension; D50.9 Iron deficiency anemia, unspecified; E78.5 Hyperlipidemia, unspecified; E87.6 Hypokalemia; R60.9 Edema, unspecified; R25.1 Tremor, unspecified; K21.9 Gastro-esophageal reflux disease without esophagitis; F10.10 Alcohol abuse, uncomplicated; Z79.4 Long term (current) use of insulin; Z82.49 Family history of ischemic heart disease and other diseases of the circulatory system; Z83.3 Family history of diabetes mellitus; Z87.891 Personal history of nicotine dependence; Z79.82 Long term (current) use of aspirin; Z66 Do not resuscitate
CPT/HCPCS: 36430; 70450; 70544; 70551; 80048; 80053; 80307; 82550; 82607; 82728; 82746; 82948; 83540; 83550; 83735; 84100; 84484; 85025; 85610; 85730; 86850; 86900; 86901; 86920; 93005; 95819; J1815; J2060; J3411; J3475; J7030; J7050; P9016